=== PATIENT | female | born 1995 | race Caucasian/White ===

== ENCOUNTER 2018-08-03 17:44 | Emergency (ER) | payer OTHER ==
[~2018-08-03] VITALS: Ht 162.6 cm; Wt 64.9 kg
[~2018-08-03 17:44] MED LIST: LAM100 PO; LEVETIRACETAM PO; ONFI PO; TOP100 PO
[2018-08-03 17:51] VITALS: Ht 162.6 cm; Wt 64.9 kg
[2018-08-03 18:52] VITALS: BP 114/71
== END 2018-08-03 19:10 | disposition home or self-care (01) ==
LOC: ED 17:44
DX: G40.909 Epilepsy, unspecified, not intractable, without status epilepticus (principal); S80.212A Abrasion, left knee, initial encounter; X58.XXXA Exposure to other specified factors, initial encounter; Y93.89 Activity, other specified; Y92.89 Other specified places as the place of occurrence of the external cause; Y99.8 Other external cause status